=== PATIENT | female | born 1980 | race Caucasian/White ===

== ENCOUNTER 2020-06-21 13:48 | Emergency (ER) | payer OTHER ==
[~2020-06-21] VITALS: Ht 157.4 cm; Wt 54.4 kg
[~2020-06-21 13:48] MED LIST: BACTRIM DS 8001 TA1 PO; SEPTRA DS 800 M1 TAB PO; VICODIN 500 MG-1 TAB PO; VICODIN ES 7501 TAB PO
[2020-06-21] MEDS ORDERED: ANUSOL-HC25 MG R (14:11)
== END 2020-06-21 14:28 | disposition home or self-care (01) ==
LOC: ED 13:48
DX: K64.4 Residual hemorrhoidal skin tags (principal); Z88.0 Allergy status to penicillin

== ENCOUNTER 2023-06-25 13:41 | Emergency (ER) | payer OTHER ==
[~2023-06-25] VITALS: Ht 157.4 cm; Wt 56.7 kg
[~2023-06-25 13:41] MED LIST changes: +ANUSOL-HC25 MG R
[2023-06-25 18:01] LABS: BASO # 0.1 10*3/uL (0.0-0.1); BASO % 0.6 % (0.0-1.0); EOS # 0.1 10*3/uL (0.0-0.4); EOS % 0.8 % (1.0-4.0); HEMATOCRIT 40.9 % (37.0-47.0); LYMPH # 1.8 10*3/uL (1.3-4.4); LYMPH % 20.5 % (27.0-41.0); MEAN CELL VOLUME 97.1 fl (81.0-99.0); MEAN PLATELET VOLUME 9.1 fl (9.6-12.3); MONO # 0.4 10*3/uL (0.1-1.0); NEUT # 6.3 10*3/uL (2.3-7.9); NEUT % 72.9 % (47.0-73.0); PLATELET COUNT AUTOMATED 327 10*3/uL (130-400); RED BLOOD COUNT 4.21 10*6/uL (4.10-5.10); WHITE BLOOD COUNT 8.7 10*3/uL (4.8-10.8)
[2023-06-25 18:19] LABS: ACT PARTIAL THROMBO TIME 26.5 SECONDS (20.0-32.1); INTERNATIONAL NORM RATIO 1.1 (2.0-3.5)
[2023-06-25 18:22] LABS: ALKALINE PHOSPHATASE 49 U/L (46-116); BUN 8 mg/dl (9-23); CHLORIDE 105 mmol/L (98-107); LIPASE 38 U/L (12-53); POTASSIUM 3.9 mmol/L (3.4-5.1); SGPT/ALT 15 U/L (10-49); TOTAL PROTEIN 8.1 gm/dL (6.0-8.0)
[2023-06-25 18:23] LABS: BETA-HCG, QUANT < 3.0 mIU/mL (3-10)
[2023-06-25] MEDS ORDERED: NAPROXEN250 MG PO (20:23)
== END 2023-06-25 20:26 | disposition home or self-care (01) ==
LOC: ED 13:41
PROVIDERS: Emergency Medicine
DX: R07.89 Other chest pain (principal); F41.9 Anxiety disorder, unspecified; Z88.0 Allergy status to penicillin